=== PATIENT | female | born 1965 | race Caucasian/White ===

== ENCOUNTER 2023-05-16 06:55 | Day surgery (SDC) | payer BC ==
[~2023-05-16] VITALS: Ht 172.7 cm; Wt 93.2 kg
[~2023-05-16 06:55] MED LIST: ALLEGRA ALLERGY60 MG PO; BIOTIN10 MG PO; CLARITIN10 M2 PO; MULTI VITAMIN1 EACH PO
[2023-05-16 07:19] VITALS: BP 126/72
[2023-05-16] MEDS ORDERED: IBUPROFEN200 M1 PO (07:23)
[2023-05-16] MEDS ORDERED: MACRODANTIN50 MG PO (07:24)
--- NOTE | 2023-05-16 07:48 | NUR ---
IN GOOD SPIRITS. CONSENTED TO PRAYER. PRAYED FOR SUCCESSFUL PROCEDURE AND ABIDING PEACE. GAVE PAGER 4 TO [employer]IVATE [employer] SERVICE ADVISOR.
--- NOTE | 2023-05-16 09:09 | NUR ---
05/16/23 0909 Melva Bustos 0856 PT ARRIVED IN PACU WIDE AWAKE WITH NO C/O'S. ABD SOFT. 0909 AT BEDSIDE. ALL QUESTIONS ANSWERED.
[2023-05-16 09:18] VITALS: BP 110/62
--- NOTE | 2023-05-20 09:00 | OR ---
[facility] [address], [place] [address] Signed DATE OF OPERATION: SURGEON: Hilaria Lambert MD PREOPERATIVE DIAGNOSIS: Colon screening. POSTOPERATIVE DIAGNOSIS: Normal colon and terminal ileum. PROCEDURE: Total colonoscopy with intubation of ileum. ANESTHESIA: Intravenous sedation, fentanyl 100 mcg and Versed 4 mg. INDICATION: This 58-year-old white woman is a patient of ANDREW Quarles of [place], [place]. She has been referred for screening colonoscopy. She has a long-standing use of laxatives to avoid constipation. She has had no blood per rectum and no family history of colon cancer. She is admitted at this time to undergo screening colonoscopy. She understands the risk of bleeding, infection, and perforation. FINDINGS: The prep was excellent. Complete colonoscopy was undertaken of the cecum. An intubation of the ileum was easily accomplished also. Throughout the colon and ilium, there was no evidence of polyps, diverticular formation, colitis, or cancer. DESCRIPTION OF PROCEDURE: The patient was brought to the endoscopy suite and placed in lateral decubitus position, given intravenous sedation to the point of slurred speech and nystagmus with full cardiopulmonary monitoring. Digital rectal examination was normal. An Olympus video colonoscope was passed in the rectum and manipulated throughout the colon ultimately intubating the cecum itself. The ileocecal valve and appendiceal orifice were normal. The scope was then passed into the ilium without problem. It too was normal. Scope was withdrawn and careful withdrawal of scope throughout the colon showed no sign of polyps, diverticular formation, colitis, or cancer. Retroflexed view of the rectum was normal as well. The scope was removed. The patient was taken to the recovery room in good condition. Electronically Signed By: HILARIA LAMBERT MD 05/20/23 0900 PATIENT NAME: CALEB CONNER Joe OPERATIVE REPORT DATE OF : 69 REPORT #: [id number] PHYSICIAN: HILARIA LAMBERT MD PCP: AUSTIN SOTO REPORT IS CONFIDENTIAL AND NOT TO BE RELEASED WITHOUT AUTHORIZATION [facility] [address], [place] [address] Signed CONCLUSION DIAGNOSIS: Normal colon and ileum. PLAN: Recommend repeat colonoscopy in 10 years, sooner if clinically indicated. She will return to the care of ANDREW Quarles in [place], [place]. MD MARYURI Paniagua/RACHEL /[id number] cc: Austin Soto PA-C Copies: AUSTIN SOTO ~ Electronically Signed By: HILARIA LAMBERT MD 05/20/23 0900 PATIENT NAME: DALILACALEB CAIN OPERATIVE REPORT DATE OF : 69 REPORT #: [id number] PHYSICIAN: HILARIA LAMBERT MD PCP: AUSTIN SOTO REPORT IS CONFIDENTIAL AND NOT TO BE RELEASED WITHOUT AUTHORIZATION
== END 2023-05-16 09:26 | disposition home or self-care (01) ==
LOC: DS 06:55 → OPS 06:55 → DS 08:30 → OPS 09:26 → DS 14:00
PROVIDERS: ATTEND Surgery
PROC: 0DJD8ZZ Inspection of Lower Intestinal Tract, Via Natural or Artificial Opening Endoscopic (ICD-10-PCS; principal; 2023-05-16 08:30)
DX: Z12.11 Encounter for screening for malignant neoplasm of colon (principal); E66.01 Morbid (severe) obesity due to excess calories; E03.9 Hypothyroidism, unspecified
CPT/HCPCS: 99153; G0500; J2250; J3010; J7121